=== PATIENT | male | born 1965 | race Caucasian/White ===

== ENCOUNTER 2019-09-24 17:37 | Inpatient (IN) | payer BC, MEDICAID ==
[2019-09-24] MEDS ORDERED: Iopamidol 612 MG/ML 100 ML Bottle IVPUSH ONE (18:02)
--- NOTE | 2019-09-24 18:14 | EDM.PDOC ---
ED HPI GENERAL MEDICAL PROBLEM - General Source of Information: Reports: Patient History Limitations: Reports: No Limitations - History of Present Illness Onset: Today Duration: Hour(s):, Constant Location: Reports: Head, Chest, Upper Extremity, Left, Upper Extremity, Right, Lower Extremity, Right Quality: Reports: Ache, Dull Severity: Moderate Improves with: Reports: None Worsens with: Reports: None Context: Reports: Trauma Associated Symptoms: Reports: No Other Symptoms Left Chest Pain Score (Numeric/FACES): 10 <Cornelio Brasher - Last Filed: 09/24/19 18:46> generalized Pain Score (Numeric/FACES): 8 <Nat Garcia - Last Filed: 09/25/19 04:00> - General Chief Complaint: Trauma Stated Complaint: FELL OFF LADDER Time Seen by Provider: 09/24/19 18:00 - History of Present Illness INITIAL COMMENTS - FREE TEXT/NARRATIVE: This 53 yo male patient reports to the ED after falling about 10 feet from a ladder. The patient reports that one of his coworkers intentionally kicked the ladder out from under him as he was working. The patient reports he did not get knocked out, but had difficulties thinking after the incident. The patient reports pain in is left chest, bilateral shoulders (left greater than right) and right knee pain. The patient also has a laceration beneath his lower lip due to the fall. (Cornelio Barsher) Patient states fell forward onto kness and left side with fall. Pain to left arm tingling in 3rd and 4th fingers. Now pain to left wrist. (Nat Garcia) - Related Data Allergies Allergy/AdvReac Type Severity Reaction Status Date / Time No Known Allergies Allergy Verified 09/24/19 22:34 Home Meds: Home Meds . [No Known Home Meds] 08/12/14 [History] Past Medical History Other HEENT History: Some tone deafness Other Respiratory History: Denies any symptoms, reports 35 yr history of smoking current > 1 pack/day cigarettes Other Gastrointestinal History: Current Right Upper Quadrant pain, certain food intolerences, HIDA scan showing Pablito Dyskinesia Other Musculoskeletal History: Low back pain, Neck pain from old injury Other Neuro History: "Headaches believe related to Neck problems" (old injury) Other Psychiatric History: Recovering alcohol and drug abuse since , Tobacco dependence - Past Surgical History GI Surgical History: Reports: Cholecystectomy <Cornelio Brasher M - Last Filed: 09/24/19 18:46> Social & Family History - Tobacco Use Smoking Status *Q: Current Some Day Smoker Years of Tobacco use: 43 Packs/Tins Daily: 1 - Caffeine Use Caffeine Use: Reports: Coffee, Soda - Recreational Drug Use Recreational Drug Use: Yes Drug Use in Last 12 Months: No <Cornelio Brasher M - Last Filed: 09/24/19 18:46> Review of Systems - Review of Systems Review Of Systems: Comprehensive ROS is negative, except as noted in HPI. <AnshuCornelio M - Last Filed: 09/24/19 18:46> ED EXAM, GENERAL - Physical Exam Exam: See Below Exam Limited By: No Limitations General Appearance: Alert, WD/WN, Moderate Distress Eye Exam: Bilateral Eye: EOMI, Normal Inspection, PERRL Ears: Normal External Exam, Normal Canal, Hearing Grossly Normal, Normal TMs Nose: Normal Inspection, Normal Mucosa, No Blood Throat/Mouth: Normal Inspection, Normal Lips, Normal Teeth, Normal Gums, Normal Oropharynx, Normal Voice, No Airway Compromise Head: Facial Tenderness (lower lip) Neck: Normal Inspection, Supple, Non-Tender, Full Range of Motion Respiratory/Chest: No Respiratory Distress, Lungs Clear, Normal Breath Sounds, No Accessory Muscle Use, Chest Non-Tender Cardiovascular: Normal Peripheral Pulses, Regular Rate, Rhythm, No Edema, No Gallop, No JVD, No Murmur, No Rub GI/Abdominal: Normal Bowel Sounds, Soft, Non-Tender, No Organomegaly, No Distention, No Abnormal Bruit, No Mass, Pelvis Stable (Male) Exam: Deferred Rectal (Males) Exam: Deferred Back Exam: Normal Inspection, Full Range of Motion, NT Extremities: Arm Pain (bilateral shoulder pain), Leg Pain (right knee pain with mild swelling) Neurological: Alert, Oriented, CN II-XII Intact, Normal Cognition, Normal Gait, Normal Reflexes, No Motor/Sensory Deficits Psychiatric: Normal Affect, Normal Mood Skin Exam: Warm, Dry, Normal Color, No Rash, Wound/Incision (lower lip) Lymphatic: No Adenopathy <BrasherCornelio Santos - Last Filed: 09/24/19 18:46> - Physical Exam Extremities: Joint Swelling (right knee), Other (left wrist pain with movement, no deformity) <Nat Garcia - Last Filed: 09/25/19 04:00> Course <Nat Garcia - Last Filed: 09/25/19 04:00> - Vital Signs Last Recorded V/S: Last Vital Signs Temp 97.6 F 09/24/19 22:50 Pulse 94 09/24/19 17:48 Resp 16 09/24/19 22:50 BP 142/92 H 09/24/19 22:50 Pulse Ox 100 09/24/19 22:50 - Orders/Labs/Meds Orders: Medication Orders Acetaminophen (Tylenol) 650 mg PO Q4H PRN PRN Reason: Pain (Mild 1-3)/fever Hydrocodone Bitart/Acetaminophen ([place] 325-10 Mg) 1 tab PO Q4H PRN PRN Reason: Pain (moderate 4-6) Docusate Sodium (Colace) 100 mg PO BID PRN PRN Reason: Constipation Heparin Sodium (Porcine) (Heparin Sodium) 5,000 units SUBCUT Q8HR [facility] Ibuprofen (Motrin) 400 mg PO TID [facility] Last Admin: 09/24/19 23:12 Dose: 400 mg Documented by: CALEB Miscellaneous Information (Remove Patch) 1 ea TRDERM Q24H [facility] Morphine Sulfate (Morphine) 1 mg IVPUSH Q2H PRN PRN Reason: Pain (severe 7-10) Nicotine (Habitrol) 14 mg TRDERM DAILY [facility] Last Admin: 09/24/19 23:11 Dose: 14 mg Documented by: CALEB Ondansetron HCl (Zofran Odt) 4 mg PO Q4H PRN PRN Reason: nausea, able to take PO Ondansetron HCl (Zofran) 4 mg IVPUSH Q6H PRN PRN Reason: Nausea/Vomiting Sodium Chloride (Saline Flush) 10 ml FLUSH ASDIRECTED PRN PRN Reason: Keep Vein Open Zolpidem Tartrate (Ambien) 5 mg PO BEDTIME PRN PRN Reason: Sleep Last Admin: 09/24/19 23:12 Dose: 5 mg Documented by: CALEB Labs: Laboratory Tests 09/24/19 Range/Units 17:52 Urine Color Dark yellow (YELLOW) Urine Appearance Slightly cloudy (CLEAR) Urine pH 5.5 (5.0-9.0) Ur Specific [place] 1.025 (1.005-1.030) Urine Protein Negative (NEGATIVE) Urine Glucose (UA) Negative (NEGATIVE) Urine Ketones Trace H (NEGATIVE) Urine Occult Blood Negative (NEGATIVE) Urine Nitrite Negative (NEGATIVE) Urine Bilirubin Negative (NEGATIVE) Urine Urobilinogen 0.2 (0.2-1.0) mg/dL Ur Leukocyte Esterase Negative (NEGATIVE) Meds: Medications Generic Name Dose Route Start Last Admin Trade Name Fresuzie PRN Reason Stop Dose Admin Acetaminophen 650 mg 09/24/19 22:50 Tylenol PO Q4H PRN Pain (Mild 1-3)/fever Hydrocodone Bitart/Acetaminophen 1 tab 09/24/19 22:50 [place] 325-10 Mg PO Q4H PRN Pain (moderate 4-6) Docusate Sodium 100 mg 09/24/19 22:50 Colace PO BID PRN Constipation Heparin Sodium (Porcine) 5,000 units 09/25/19 06:00 Heparin Sodium SUBCUT Q8HR [facility] Ibuprofen 400 mg 09/24/19 23:00 09/24/19 23:12 Motrin PO 400 mg TID [facility] Administration Miscellaneous Information 1 ea 09/25/19 23:00 Remove Patch TRDERM Q24H [facility] Morphine Sulfate 1 mg 09/24/19 22:50 Morphine IVPUSH Q2H PRN Pain (severe 7-10) Nicotine 14 mg 09/24/19 23:00 09/24/19 23:11 Habitrol TRDERM 14 mg DAILY [facility] Administration Ondansetron HCl 4 mg 09/24/19 22:50 Zofran Odt PO Q4H PRN nausea, able to take PO Ondansetron HCl 4 mg 09/24/19 22:50 Zofran IVPUSH Q6H PRN Nausea/Vomiting Sodium Chloride 10 ml 09/24/19 22:50 Saline Flush FLUSH ASDIRECTED PRN Keep Vein Open Zolpidem Tartrate 5 mg 09/24/19 22:50 09/24/19 23:12 Ambien PO 5 mg BEDTIME PRN Administration Sleep Discontinued Medications Generic Name Dose Route Start Last Admin Trade Name Maggie PRN Reason Stop Dose Admin Fentanyl 50 mcg 09/24/19 21:28 09/24/19 21:42 Sublimaze IVPUSH 09/24/19 21:29 50 mcg ONETIME ONE Administration Iopamidol 100 ml 09/24/19 18:02 09/24/19 19:09 Isovue-300 (61%) IVPUSH 09/24/19 18:03 100 ml ONETIME ONE Administration Lidocaine/Epinephrine 20 ml 09/24/19 19:35 09/24/19 19:52 Xylocaine 1% With Epinephrine 1:100,000 INJECT 09/24/19 19:36 20 ml ONETIME ONE Administration Orphenadrine Citrate 60 mg 09/24/19 21:28 09/24/19 21:44 Norflex IM 09/24/19 21:29 60 mg ONETIME ONE Administration - Re-Assessments/Exams Free Text/Narrative Re-Assessment/Exam: TC Dr Miguel Ángel [facility] regarding glenoid fracture, Recommend sling and follow up in clinic next week on Sunday or Sunday Poor tolerance to discomfort, shaking, sweating with attempt to sit up and dress. Dr Cornejo accepting patient for observation/ pain control. Results of studies reviewed with patient. (Nat Garcia) Departure <Cornelio Brasher - Last Filed: 09/24/19 18:46> - Departure Time of Disposition: 22:05 Condition: Good - Discharge Information *PRESCRIPTION DRUG MONITORING PROGRAM REVIEWED*: No *COPY OF PRESCRIPTION DRUG MONITORING REPORT IN PATIENT SWEETIE: No <Nat Garcia - Last Filed: 09/25/19 04:00> - Departure Disposition: Refer to Observation Clinical Impression: Effusion, right knee, Left wrist pain Fall from ladder Qualifiers: Encounter type: initial encounter Qualified Code(s): W11.XXXA - Fall on and from ladder, initial encounter Glenoid fracture of shoulder Qualifiers: Encounter type: initial encounter Fracture type: closed Laterality: left Qualified Code(s): S42.142A - Displaced fracture of glenoid cavity of scapula, left shoulder, initial encounter for closed fracture Laceration of lip Qualifiers: Encounter type: initial encounter Qualified Code(s): S01.511A - Laceration without foreign body of lip, initial encounter Sepsis Event Note (ED) - Evaluation Sepsis Screening Result: No Definite Risk <Cornelio Brasher - Last Filed: 09/24/19 18:46> - Focused Exam Vital Signs: Vital Signs Temp Pulse Resp BP Pulse Ox 09/24/19 17:48 97.4 F 94 18 130/80 97
--- NOTE | 2019-09-24 19:15 | CR ---
PROCEDURE INFORMATION: Exam: XR Right Knee Exam date and time: 09/24/2019 6:43 PM Age: 53 years old Clinical indication: Injury or trauma; Fall; Work related; Initial encounter; Blunt trauma; Knee; Right; Injury date: 09/24/2019; Additional info: Fell from ladder TECHNIQUE: Imaging protocol: XR Right knee. Views: 1 or 2 views. COMPARISON: No relevant prior studies available. FINDINGS: Bones/joints: Effacement of suprapatellar fat suggesting joint effusion. No acute fracture or dislocation. Soft tissues: Normal. IMPRESSION: No acute fracture or dislocation.
--- NOTE | 2019-09-24 19:16 | CT ---
PROCEDURE INFORMATION: Exam: CT Head Without Contrast Exam date and time: 09/24/2019 6:18 PM Age: 53 years old Clinical indication: Pain; Other: Fall; Additional info: Fell 10 feet from ladder TECHNIQUE: Imaging protocol: Computed tomography of the head without contrast. Radiation optimization: All CT scans at this facility use at least one of these dose optimization techniques: automated exposure control; mA and/or kV adjustment per patient size (includes targeted exams where dose is matched to clinical indication); or iterative reconstruction. COMPARISON: No relevant prior studies available. FINDINGS: Brain: No mass effect or midline shift. No abnormal densities are seen intracranially; no sign of acute intracranial hemorrhage or cerebral edema. Ventricles: Ventricles and cortical sulci are normal in caliber. Bones/joints: Skull base and overlying calvarium are intact. No lytic or osteosclerotic lesions. Sinuses: Visualized sinuses are unremarkable. No fluid levels. Mastoid air cells: Visualized mastoid air cells are well aerated. Orbits: Gaze is divergent. Soft tissues: Unremarkable. IMPRESSION: No sign of acute intracranial injury or skull fracture.
--- NOTE | 2019-09-24 19:25 | CT ---
PROCEDURE INFORMATION: Exam: CT Chest With Contrast Exam date and time: 09/24/2019 6:18 PM Age: 53 years old Clinical indication: Injury or trauma; Fall; Work related; Initial encounter; Generalized; Blunt trauma (contusions or hematomas); Injury date: 09/24/2019; Prior surgery; Surgery date: 6+ months; Surgery type: Cholecystectomy; Additional info: Fell 10 feet from ladder TECHNIQUE: Imaging protocol: Computed tomography of the chest with intravenous contrast. Radiation optimization: All CT scans at this facility use at least one of these dose optimization techniques: automated exposure control; mA and/or kV adjustment per patient size (includes targeted exams where dose is matched to clinical indication); or iterative reconstruction. Contrast material: ISOVUE; Contrast volume: 100 ml; Contrast route: INTRAVENOUS (IV); COMPARISON: No relevant prior studies available. FINDINGS: Lungs: No trauma-related groundglass densities, areas of lung consolidation, or significant cystic/cavitary lesions. Airway is patent. Pleural space: No pneumothorax, pleural effusion, or hemothorax. Heart: No pericardial effusion or hemopericardium. Mediastinal space: No pneumomediastinum, hemomediastinum, or stranding of retrosternal fat. Aorta: No aortic aneurysm. Great vessels off aortic arch: The thoracic aorta and other great vessels are normal in caliber with no intimal flap to indicate dissection. Lymph nodes: No enlarged axillary, mediastinal, or hilar lymph nodes. Bones/joints: Fracture of anterior inferior left glenoid displaced by 8 mm. No shoulder dislocation. Healed posterior right 8th rib fracture.There is age-appropriate spondylosis of the spine. Soft tissues: No sign of subcutaneous contusion or hematoma. No foreign body. IMPRESSION: Fracture of anterior inferior left glenoid displaced by 8 mm. PROCEDURE INFORMATION: Exam: CT Abdomen And Pelvis With Contrast Exam date and time: 09/24/2019 6:18 PM Age: 53 years old Clinical indication: Injury or trauma; Fall; Work related; Initial encounter; Generalized; Blunt trauma (contusions or hematomas); Injury date: 09/24/2019; Prior surgery; Surgery date: 6+ months; Surgery type: Cholecystectomy; Additional info: Fell 10 feet from ladder TECHNIQUE: Imaging protocol: Computed tomography of the abdomen and pelvis with intravenous contrast. Radiation optimization: All CT scans at this facility use at least one of these dose optimization techniques: automated exposure control; mA and/or kV adjustment per patient size (includes targeted exams where dose is matched to clinical indication); or iterative reconstruction. Contrast material: ISOVUE; Contrast volume: 100 ml; Contrast route: INTRAVENOUS (IV); COMPARISON: No relevant prior studies available. FINDINGS: Liver: Liver is normal in architecture, no subcapsular hematoma, linear parenchymal lucency, or significant abnormal densities. Gallbladder and bile ducts: The gallbladder is surgically absent. Pancreas: Pancreas is normal in architecture, contour and density. No ductal dilatation. No local stranding of its fat. No pancreatic cleavage. Spleen: No splenic or perisplenic hematomas. No linear parenchymal lucencies. Adrenals: There are no suspicious adrenal masses. Kidneys and ureters: Kidneys show symmetric excretion without focal perfusion defect. No perinephric or subcapsular hematomas. No fracture. No hydronephrosis. Stomach and bowel: No significant abnormalities of the stomach. There are no dilated or thickened small bowel loops. Gas and stool are seen in the colon to the rectum. No mass. Appendix: The appendix is seen. It is normal. Intraperitoneal space: No pneumoperitoneum, ascites, mass or stranding of fat. Vasculature: No pseudoaneurysm, sign of active hemorrhage, intimal flap, subintimal hematoma, extraperitoneal hematoma, or vessel thrombosis. Multiple phleboliths are present bilaterally low within the pelvis. Lymph nodes: No enlarged lymph nodes. Bladder: There is no bladder wall thickening, mass, or calculus. Reproductive: Prostate gland is normal in size. The seminal vesicles are unremarkable. Bones/joints: Lumbar spine, sacrum, pelvis and proximal femurs are intact. Soft tissues: No sign of subcutaneous contusion or hematoma. No foreign body. IMPRESSION: No sign of acute traumatic sequelae to the abdomen and pelvis.
[2019-09-24] MEDS ORDERED: Lidocaine 1% with EPINEPHrine 1:100,000 20 ML MDV INJECT ONE (19:35)
[2019-09-24] MEDS ORDERED: fentaNYL 100 MCG/2 ML SDV IVPUSH ONE (21:28)
[2019-09-24] MEDS ORDERED: Orphenadrine 60 MG/2 ML Inj IM ONE (21:28)
--- NOTE | 2019-09-24 21:31 | CT ---
PROCEDURE INFORMATION: Exam: CT Cervical Spine Without Contrast Exam date and time: 09/24/2019 8:42 PM Age: 53 years old Clinical indication: Injury or trauma; Fall; Work related; Initial encounter; Blunt trauma; Injury date: 09/24/2019; Additional info: Fall 10 feet tingling left hand 3 rd 4th fingers TECHNIQUE: Imaging protocol: Computed tomography images of the cervical spine without contrast. Radiation optimization: All CT scans at this facility use at least one of these dose optimization techniques: automated exposure control; mA and/or kV adjustment per patient size (includes targeted exams where dose is matched to clinical indication); or iterative reconstruction. COMPARISON: No relevant prior studies available. FINDINGS: Vertebrae: No acute fracture. There are no perched or locked facets. The craniocervical relationship is normal. No lytic or osteosclerotic lesions. Discs/Spinal canal/Neural foramina: Age-appropriate spondylosis contributing to multilevel bilateral foraminal stenosis. Soft tissues: Unremarkable. Lungs: Lung apices are normal. IMPRESSION: No sign of acute cervical spine injury.
--- NOTE | 2019-09-24 21:33 | CR ---
PROCEDURE INFORMATION: Exam: XR Left Wrist Exam date and time: 09/24/2019 8:57 PM Age: 53 years old Clinical indication: Injury or trauma; Fall; Work related; Initial encounter; Blunt trauma (contusions or hematomas; Wrist; Left; Injury date: 09/24/2019 TECHNIQUE: Imaging protocol: XR Left wrist. Views: 3 or more views. COMPARISON: No relevant prior studies available. FINDINGS: Bones/joints: Normal. Soft tissues: Suspected 2 mm metallic foreign body in the soft tissues of the thumb. IMPRESSION: 1. No acute fracture or dislocation. 2. Suspected 2 mm metallic foreign body in the soft tissues of the thumb.
--- NOTE | 2019-09-24 21:41 | CT ---
PROCEDURE INFORMATION: Exam: CT Left Upper Extremity Without Contrast, Shoulder Exam date and time: 09/24/2019 8:42 PM Age: 53 years old Clinical indication: Injury or trauma; Fall; Work related; Initial encounter; Blunt trauma (contusions or hematomas; Shoulder; Left; Injury date: 09/24/2019; Additional info: Fall from ladder 10 feet TECHNIQUE: Imaging protocol: CT of the Left upper extremity without contrast was performed. Exam focused on the shoulder. Radiation optimization: All CT scans at this facility use at least one of these dose optimization techniques: automated exposure control; mA and/or kV adjustment per patient size (includes targeted exams where dose is matched to clinical indication); or iterative reconstruction. COMPARISON: No relevant prior studies available. FINDINGS: Bones/joints: 1.4 cm displaced fracture of the anterior inferior glenoid. No dislocation. Suspect [place] Sachs impaction fracture. Soft tissues: Normal. IMPRESSION: 1. 1.4 cm displaced fracture of the anterior inferior glenoid. 2. Suspect [place] Sachs impaction fracture.
[2019-09-24] MEDS ORDERED: Ondansetron 4 MG Tab.DIS PO PRN (22:50)
[2019-09-24] MEDS ORDERED: Ondansetron 4 MG/2 ML SDV IVPUSH PRN (22:50)
[2019-09-24] MEDS ORDERED: Docusate Sodium 100 MG Cap PO PRN (22:50)
[2019-09-24] MEDS ORDERED: Morphine 2 MG/ML SYRINGE IVPUSH PRN (22:50)
[2019-09-24] MEDS ORDERED: Acetaminophen 325 MG Tab PO PRN (22:50)
[2019-09-24] MEDS ORDERED: Zolpidem 5 MG Tab PO PRN (22:50)
--- NOTE | 2019-09-24 23:03 | PCM.HP ---
H&P History of Present Illness - General Date of Service: 09/24/19 Admit Problem/Dx: Admission Diagnosis/Problem Admission Diagnosis/Problem Fall from ladder Source of Information: Patient History Limitations: Reports: No Limitations - History of Present Illness Initial Comments - Free Text/Narative: 53-year-old gentleman with no chronic medical history. Taking no medications. Smoking 1.5 pack a day, drinking 5-7 beers a day, last consumption was about 24 hours ago. The patient was working on the ladder about 10 feet high. He fell down. No apparent loss of consciousness. Did hit the face, shoulders, knee. Came to the emergency room He has been complaining of left shoulder, right knee pain. Laceration noted on the lower lip that was sutured in the ER. The patient had CT of the chest abdomen pelvis, x-ray of the left hand and right knee. Injury noted to the left glenoid bone with fracture. Pain medication was given in the emergency room that but the patient was in too much pain for discharge. Plan for admission for pain control. Complaining of moderate to severe pain in the right knee and left shoulder. This is since the fall. Worse with touch and movements. Left Chest Pain Score (Numeric/FACES): 10 - Related Data Allergies/Adverse Reactions: Allergies Allergy/AdvReac Type Severity Reaction Status Date / Time No Known Allergies Allergy Verified 09/24/19 22:34 Home Medications: Home Meds . [No Known Home Meds] 08/12/14 [History] Past Medical History Other HEENT History: Some tone deafness Other Respiratory History: Denies any symptoms, reports 35 yr history of smoking current > 1 pack/day cigarettes Other Gastrointestinal History: Current Right Upper Quadrant pain, certain food intolerences, HIDA scan showing Pablito Dyskinesia Other Musculoskeletal History: Low back pain, Neck pain from old injury Other Neuro History: "Headaches believe related to Neck problems" (old injury) Other Psychiatric History: Recovering alcohol and drug abuse since , Tobacco dependence - Infectious Disease History Infectious Disease History: Reports: Chicken Pox, Mumps - Past Surgical History GI Surgical History: Reports: Cholecystectomy Social & Family History - Tobacco Use Smoking Status *Q: Current Every Day Smoker Years of Tobacco use: 45 Packs/Tins Daily: 1.5 Used Tobacco, but Quit: No Second Hand Smoke Exposure: Yes - Caffeine Use Caffeine Use: Reports: None - Alcohol Use Days Per Week of Alcohol Use: 3 Number of Drinks Per Day: 12 Total Drinks Per Week: 36 Date of Last Drink: 09/24/19 Time of Last Drink: 00:00 - Recreational Drug Use Recreational Drug Use: No Drug Use in Last 12 Months: No H&P Review of Systems - Review of Systems: Review Of Systems: See Below General: Denies: Fever, Chills Pulmonary: Denies: Shortness of Breath Cardiovascular: Denies: Chest Pain, Edema Gastrointestinal: Denies: Abdominal Pain Exam - Exam Exam: See Below - Vital Signs Vital Signs: Last Vital Signs Temp 97.4 F 09/24/19 17:48 Pulse 94 09/24/19 17:48 Resp 18 09/24/19 17:48 BP 130/80 09/24/19 17:48 Pulse Ox 97 09/24/19 17:48 Weight: 236 lb 12.8 oz - Exam General: Alert, Oriented HEENT: Other (Sutured laceration of the lower lip) Neck: Supple Lungs: Clear to Auscultation, Normal Respiratory Effort Cardiovascular: Regular Rate, Regular Rhythm GI/Abdominal Exam: Normal Bowel Sounds, Soft Extremities: Other (Left upper extremity in a sling, right knee with Rikki bandage). No: Pedal Edema - Patient Data Lab Results Last 24 hrs: Laboratory Results - last 24 hr 09/24/19 Range/Units 17:52 Urine Color Dark yellow (YELLOW) Urine Appearance Slightly cloudy (CLEAR) Urine pH 5.5 (5.0-9.0) Ur Specific [place] 1.025 (1.005-1.030) Urine Protein Negative (NEGATIVE) Urine Glucose (UA) Negative (NEGATIVE) Urine Ketones Trace H (NEGATIVE) Urine Occult Blood Negative (NEGATIVE) Urine Nitrite Negative (NEGATIVE) Urine Bilirubin Negative (NEGATIVE) Urine Urobilinogen 0.2 (0.2-1.0) mg/dL Ur Leukocyte Esterase Negative (NEGATIVE) Imaging Impressions Last 24 hrs: X-ray of the right knee, CT of the left shoulder, CT chest abdomen pelvis, x-ray of the left hand was reviewed. Left thumb metallic body noted Left anterior and inferior glenoid fracture noted - Problem List (1) Effusion, right knee SNOMED Code(s): 649797303925379 ICD Code: M25.461 - EFFUSION, RIGHT KNEE Status: Acute Current Visit: No (2) Fall from ladder SNOMED Code(s): 02181807 ICD Code: W11.XXXA - FALL ON AND FROM LADDER, INITIAL ENCOUNTER Status: Acute Current Visit: No Qualifiers: Encounter type: initial encounter Qualified Code(s): W11.XXXA - Fall on and from ladder, initial encounter (3) Glenoid fracture of shoulder SNOMED Code(s): 73781475 ICD Code: S42.143A - DISP FX OF GLENOID CAVITY OF SCAPULA, UNSP SHOULDER, INIT; S42.153A - DISP FX OF NECK OF SCAPULA, UNSP SHOULDER, INIT FOR CLOS FX Status: Acute Current Visit: No Qualifiers: Encounter type: initial encounter Fracture type: closed Laterality: left Qualified Code(s): S42.142A - Displaced fracture of glenoid cavity of scapula, left shoulder, initial encounter for closed fracture; S42.152A - Displaced fracture of neck of scapula, left shoulder, initial encounter for closed fracture (4) Laceration of lip SNOMED Code(s): 442161318 ICD Code: S01.511A - LACERATION WITHOUT FOREIGN BODY OF LIP, INITIAL ENCOUNTER Status: Acute Current Visit: No Qualifiers: Encounter type: initial encounter Qualified Code(s): S01.511A - Laceration without foreign body of lip, initial encounter (5) Left wrist pain SNOMED Code(s): 21136907 ICD Code: M25.532 - PAIN IN LEFT WRIST Status: Acute Current Visit: No Problem List Initiated/Reviewed/Updated: Yes Orders Last 24hrs: Active Orders 24 hr Category Date Time Status Admission Diagnosis [ADT] Stat ADT 09/24/19 22:03 Ordered Admission Status [Patient Status] [ADT] Routine ADT 09/24/19 22:03 Active Antiembolic Devices [RC] PER UNIT ROUTINE Care 09/24/19 22:52 Ordered Cardiac Monitoring [RC] . DIRECTED Care 09/24/19 22:03 Active Oxygen Therapy [RC] PRN Care 09/24/19 22:50 Ordered Peripheral IV Care [RC] . DIRECTED Care 09/24/19 22:52 Ordered Up With Assistance [RC] ASDIRECTED Care 09/24/19 22:50 Ordered VTE/DVT Education [RC] PER UNIT ROUTINE Care 09/24/19 22:50 Ordered Vital Signs [RC] Q4H Care 09/24/19 22:50 Ordered Regular Diet [DIET] Diet 09/24/19 Breakfast Ordered Acetaminophen [Tylenol] Med 09/24/19 22:50 Ordered 650 mg PO Q4H PRN Acetaminophen/HYDROcodone [[place] 325-10 MG] Med 09/24/19 22:50 Ordered 1 tab PO Q4H PRN Docusate Sodium [Colace] Med 09/24/19 22:50 Ordered 100 mg PO BID PRN Heparin Sodium Med 09/25/19 06:00 Ordered 5,000 units SUBCUT Q8HR Ibuprofen [Motrin] Med 09/24/19 23:00 Ordered 400 mg PO TID Morphine Med 09/24/19 22:50 Ordered 1 mg IVPUSH Q2H PRN Nicotine [Habitrol] Med 09/24/19 23:00 Ordered 14 mg TRDERM DAILY Ondansetron [Zofran ODT] Med 09/24/19 22:50 Ordered 4 mg PO Q4H PRN Ondansetron [Zofran] Med 09/24/19 22:50 Ordered 4 mg IVPUSH Q6H PRN Sodium Chloride 0.9% [Saline Flush] Med 09/24/19 22:50 Ordered 10 ml FLUSH ASDIRECTED PRN Zolpidem [Ambien] Med 09/24/19 22:50 Ordered 5 mg PO BEDTIME PRN Peripheral IV Insertion Adult [OM.PC] Routine Oth 09/24/19 22:50 Ordered Saline Lock Insert [OM.PC] Routine Oth 09/24/19 22:50 Ordered Sequential Compression Device [OM.PC] Per Unit Routine Oth 09/24/19 22:51 Ordered Resuscitation Status Routine Resus Stat 09/24/19 22:50 Ordered Medication Orders Acetaminophen (Tylenol) 650 mg PO Q4H PRN PRN Reason: Pain (Mild 1-3)/fever Hydrocodone Bitart/Acetaminophen ([place] 325-10 Mg) 1 tab PO Q4H PRN PRN Reason: Pain (moderate 4-6) Docusate Sodium (Colace) 100 mg PO BID PRN PRN Reason: Constipation Heparin Sodium (Porcine) (Heparin Sodium) 5,000 units SUBCUT Q8HR [facility] Ibuprofen (Motrin) 400 mg PO TID [facility] Morphine Sulfate (Morphine) 1 mg IVPUSH Q2H PRN PRN Reason: Pain (severe 7-10) Nicotine (Habitrol) 14 mg TRDERM DAILY [facility] Ondansetron HCl (Zofran Odt) 4 mg PO Q4H PRN PRN Reason: nausea, able to take PO Ondansetron HCl (Zofran) 4 mg IVPUSH Q6H PRN PRN Reason: Nausea/Vomiting Sodium Chloride (Saline Flush) 10 ml FLUSH ASDIRECTED PRN PRN Reason: Keep Vein Open Zolpidem Tartrate (Ambien) 5 mg PO BEDTIME PRN PRN Reason: Sleep Assessment/Plan Comment:: 53-year-old gentleman with no chronic medical history. Taking no medications. Smoking 1.5 pack a day, drinking 5-7 beers a day, last consumption was about 24 hours ago. The patient was working on the ladder about 10 feet high. He fell down. No apparent loss of consciousness. Did hit the face, shoulders, knee. Came to the emergency room He has been complaining of left shoulder, right knee pain. Laceration noted on the lower lip that was sutured in the ER. The patient had CT of the chest abdomen pelvis, x-ray of the left hand and right knee. Injury noted to the left glenoid bone with fracture. Pain medication was given in the emergency room that but the patient was in too much pain for discharge. Plan for admission for pain control. X-ray of the right knee, CT of the left shoulder, CT chest abdomen pelvis, x-ray of the left hand was reviewed. #1 Left thumb 2mm metallic body noted Left anterior and inferior glenoid fracture noted The patient's left shoulder injury was discussed between the emergency room provider and orthopedic surgery occupational therapy assistant in [place]. Plan for pain control Follow-up in the ortho clinic for further evaluation and treatment Will also need suture removal from the lower lip in 2 weeks #2. For pain control we'll start scheduled Motrin Use Tylenol for mild, hydrocodone for moderate, IV morphine for severe pain Use left upper extremity sling #3. Will use nicotine patch ordered a history of smoking, monitor for potential alcohol withdrawal #4. DVT prophylaxis with subcutaneous heparin
[2019-09-24] MEDS: Nicotine 14 MG/24 Hr Patch TRDERM SCH (23:11)
[2019-09-24] MEDS: Ibuprofen 400 MG Tab PO SCH (23:12)
[2019-09-25] MEDS: Heparin Sodium 5,000 Units/ML Vial SUBCUT SCH ×3 (05:51→21:52)
[2019-09-25] MEDS: Nicotine 14 MG/24 Hr Patch TRDERM SCH (08:30)
[2019-09-25] MEDS: Ibuprofen 400 MG Tab PO SCH ×3 (08:31→21:49)
[2019-09-25] MEDS: Sodium Chloride 0.9% 10 ML Syringe FLUSH PRN (08:38)
--- NOTE | 2019-09-25 10:23 | PCM.DCSUM1 ---
Discharge Summary - Hospital Course Free Text/Narrative:: 53-year-old gentleman with no chronic medical history. Taking no medications. Smoking 1.5 pack a day, drinking 5-7 beers a day. The patient was working on the ladder about 10 feet high. He fell down. No apparent loss of consciousness. Did hit the face, shoulders, knee. Came to the emergency room He has been complaining of left shoulder, right knee pain. Laceration noted on the lower lip that was sutured in the ER. The patient had CT of the chest abdomen pelvis, x-ray of the left hand and right knee. Injury noted to the left glenoid bone with fracture. Pain medication was given in the emergency room that but the patient was in too much pain for discharge. X-ray of the right knee, CT of the left shoulder, CT chest abdomen pelvis, x-ray of the left hand was reviewed. #1 Left thumb 2mm metallic body noted - no apparent new injury Left anterior and inferior glenoid fracture noted The patient's left shoulder injury was discussed between the emergency room provider and orthopedic surgery cotton classer aide in [place]. Plan for pain control Follow-up in the ortho clinic for further evaluation and treatment Will also need suture removal from the lower lip in 2 weeks #2. For pain control use Motrin, Tylenol Use left upper extremity sling #3. No withdrawal symptoms Diagnosis: Stroke: No - Discharge Data Discharge Date: 09/25/19 Discharge Disposition: Home, Self-Care 01 Condition: Stable - Referral to Home Health Primary Care Physician: PCP None - Discharge Diagnosis/Problem(s) (1) Effusion, right knee SNOMED Code(s): 693593907632975 ICD Code: M25.461 - EFFUSION, RIGHT KNEE Status: Acute Current Visit: No (2) Fall from ladder SNOMED Code(s): 37113343 ICD Code: W11.XXXA - FALL ON AND FROM LADDER, INITIAL ENCOUNTER Status: Acute Current Visit: No Qualifiers: Encounter type: initial encounter Qualified Code(s): W11.XXXA - Fall on and from ladder, initial encounter (3) Glenoid fracture of shoulder SNOMED Code(s): 26871287 ICD Code: S42.143A - DISP FX OF GLENOID CAVITY OF SCAPULA, UNSP SHOULDER, INIT; S42.153A - DISP FX OF NECK OF SCAPULA, UNSP SHOULDER, INIT FOR CLOS FX Status: Acute Current Visit: No Qualifiers: Encounter type: initial encounter Fracture type: closed Laterality: left Qualified Code(s): S42.142A - Displaced fracture of glenoid cavity of scapula, left shoulder, initial encounter for closed fracture; S42.152A - Displaced fracture of neck of scapula, left shoulder, initial encounter for closed fracture (4) Laceration of lip SNOMED Code(s): 738086449 ICD Code: S01.511A - LACERATION WITHOUT FOREIGN BODY OF LIP, INITIAL ENCOUNTER Status: Acute Current Visit: No Qualifiers: Encounter type: initial encounter Qualified Code(s): S01.511A - Laceration without foreign body of lip, initial encounter (5) Left wrist pain SNOMED Code(s): 45084658 ICD Code: M25.532 - PAIN IN LEFT WRIST Status: Acute Current Visit: No - Patient Instructions Diet: Heart Healthy Diet Activity: As Tolerated - Discharge Plan *PRESCRIPTION DRUG MONITORING PROGRAM REVIEWED*: No *COPY OF PRESCRIPTION DRUG MONITORING REPORT IN PATIENT SWEETIE: No Prescriptions/Med Rec: Ibuprofen [Motrin] 600 mg PO Q6H PRN #30 tab PRN Reason: Pain Home Medications: Home Meds Acetaminophen [Tylenol] 650 mg PO Q4H PRN tablet 09/25/19 [Rx] Ibuprofen [Motrin] 600 mg PO Q6H PRN #30 tab 09/25/19 [Rx] Oxygen Therapy Mode: Room Air Patient Handouts: Shoulder Pain, Knee Effusion, [id number], Sutured Wound C are, Sutures, Jeri, or Adhesive Wound Closure Referrals: PCP,None [Primary Care Provider] - (orthopedic surgery) - Discharge Summary/Plan Comment DC Time >30 min.: No - General Info Date of Service: 09/25/19 Subjective Update: diffuse muscle ache in whole body pain in left shoulder and r. knee no bleeding from lip sutures Functional Status: Reports: Tolerating Diet - Review of Systems General: Denies: Fever Pulmonary: Denies: Shortness of Breath Cardiovascular: Denies: Chest Pain Neurological: Denies: Confusion - Patient Data Vitals - Most Recent: Last Vital Signs Temp 98.5 F 09/25/19 07:43 Pulse 74 09/25/19 07:43 Resp 20 09/25/19 07:43 BP 138/84 09/25/19 07:43 Pulse Ox 97 09/25/19 07:43 Weight - Most Recent: 236 lb 12.8 oz I&O - Last 24 hours: Intake & Output 09/24/19 09/25/19 09/25/19 22:59 06:59 14:59 Output Total 525 Balance -525 Lab Results - Last 24 hrs: Laboratory Results - last 24 hr 09/24/19 Range/Units 17:52 Urine Color Dark yellow (YELLOW) Urine Appearance Slightly cloudy (CLEAR) Urine pH 5.5 (5.0-9.0) Ur Specific [place] 1.025 (1.005-1.030) Urine Protein Negative (NEGATIVE) Urine Glucose (UA) Negative (NEGATIVE) Urine Ketones Trace H (NEGATIVE) Urine Occult Blood Negative (NEGATIVE) Urine Nitrite Negative (NEGATIVE) Urine Bilirubin Negative (NEGATIVE) Urine Urobilinogen 0.2 (0.2-1.0) mg/dL Ur Leukocyte Esterase Negative (NEGATIVE) Med Orders - Current: Current Medications Acetaminophen (Tylenol) 650 mg PO Q4H PRN PRN Reason: Pain (Mild 1-3)/fever Hydrocodone Bitart/Acetaminophen ([place] 325-10 Mg) 1 tab PO Q4H PRN PRN Reason: Pain (moderate 4-6) Docusate Sodium (Colace) 100 mg PO BID PRN PRN Reason: Constipation Heparin Sodium (Porcine) (Heparin Sodium) 5,000 units SUBCUT Q8HR [facility] Last Admin: 09/25/19 05:51 Dose: Not Given Documented by: Ibuprofen (Motrin) 400 mg PO TID [facility] Last Admin: 09/25/19 08:31 Dose: 400 mg Documented by: Miscellaneous Information (Remove Patch) 1 ea TRDERM Q24H [facility] Morphine Sulfate (Morphine) 1 mg IVPUSH Q2H PRN PRN Reason: Pain (severe 7-10) Nicotine (Habitrol) 14 mg TRDERM DAILY [facility] Last Admin: 09/25/19 08:30 Dose: 14 mg Documented by: Ondansetron HCl (Zofran Odt) 4 mg PO Q4H PRN PRN Reason: nausea, able to take PO Ondansetron HCl (Zofran) 4 mg IVPUSH Q6H PRN PRN Reason: Nausea/Vomiting Sodium Chloride (Saline Flush) 10 ml FLUSH ASDIRECTED PRN PRN Reason: Keep Vein Open Last Admin: 09/25/19 08:38 Dose: 10 ml Documented by: Zolpidem Tartrate (Ambien) 5 mg PO BEDTIME PRN PRN Reason: Sleep Last Admin: 09/24/19 23:12 Dose: 5 mg Documented by: Discontinued Medications Fentanyl (Sublimaze) 50 mcg IVPUSH ONETIME ONE Stop: 09/24/19 21:29 Last Admin: 09/24/19 21:42 Dose: 50 mcg Documented by: Iopamidol (Isovue-300 (61%)) 100 ml IVPUSH ONETIME ONE Stop: 09/24/19 18:03 Last Admin: 09/24/19 19:09 Dose: 100 ml Documented by: Lidocaine/Epinephrine (Xylocaine 1% With Epinephrine 1:100,000) 20 ml INJECT ONETIME ONE Stop: 09/24/19 19:36 Last Admin: 09/24/19 19:52 Dose: 20 ml Documented by: Orphenadrine Citrate (Norflex) 60 mg IM ONETIME ONE Stop: 09/24/19 21:29 Last Admin: 09/24/19 21:44 Dose: 60 mg Documented by: - Exam General: Reports: Alert, Oriented Lungs: Reports: Clear to Auscultation, Normal Respiratory Effort Cardiovascular: Reports: Regular Rate, Regular Rhythm Extremities: No Pedal Edema Skin: Reports: Warm Neurological: Reports: No New Focal Deficit Psy/Mental Status: Reports: Alert, Normal Affect, Normal Mood
[2019-09-25] MEDS: Acetaminophen/HYDROcodone 325-10 MG Tab PO PRN ×3 (11:18→20:28)
--- NOTE | 2019-09-25 11:39 | PCM.PN ---
- General Info Date of Service: 09/25/19 Admission Dx/Problem (Free Text): Admission Diagnosis/Problem Admission Diagnosis/Problem Fall from ladder Subjective Update: diffuse muscle ache in whole body pain in left shoulder and r. knee no bleeding from lip sutures - Review of Systems General: Reports: Weakness. Denies: Fever Pulmonary: Denies: Shortness of Breath Cardiovascular: Denies: Chest Pain Gastrointestinal: Denies: Abdominal Pain Neurological: Denies: Confusion - Patient Data Vitals - Most Recent: Last Vital Signs Temp 98.5 F 09/25/19 07:43 Pulse 74 09/25/19 07:43 Resp 20 09/25/19 07:43 BP 138/84 09/25/19 07:43 Pulse Ox 97 09/25/19 07:43 Weight - Most Recent: 236 lb 12.8 oz I&O - Last 24 Hours: Intake & Output 09/24/19 09/25/19 09/25/19 22:59 06:59 14:59 Output Total 525 Balance -525 Lab Results Last 24 Hours: Laboratory Results - last 24 hr 09/24/19 Range/Units 17:52 Urine Color Dark yellow (YELLOW) Urine Appearance Slightly cloudy (CLEAR) Urine pH 5.5 (5.0-9.0) Ur Specific [place] 1.025 (1.005-1.030) Urine Protein Negative (NEGATIVE) Urine Glucose (UA) Negative (NEGATIVE) Urine Ketones Trace H (NEGATIVE) Urine Occult Blood Negative (NEGATIVE) Urine Nitrite Negative (NEGATIVE) Urine Bilirubin Negative (NEGATIVE) Urine Urobilinogen 0.2 (0.2-1.0) mg/dL Ur Leukocyte Esterase Negative (NEGATIVE) Med Orders - Current: Current Medications Acetaminophen (Tylenol) 650 mg PO Q4H PRN PRN Reason: Pain (Mild 1-3)/fever Hydrocodone Bitart/Acetaminophen ([place] 325-10 Mg) 1 tab PO Q4H PRN PRN Reason: Pain (moderate 4-6) Last Admin: 09/25/19 11:18 Dose: 1 tab Documented by: Docusate Sodium (Colace) 100 mg PO BID PRN PRN Reason: Constipation Heparin Sodium (Porcine) (Heparin Sodium) 5,000 units SUBCUT Q8HR [facility] Last Admin: 09/25/19 05:51 Dose: Not Given Documented by: Ibuprofen (Motrin) 400 mg PO TID [facility] Last Admin: 09/25/19 08:31 Dose: 400 mg Documented by: Miscellaneous Information (Remove Patch) 1 ea TRDERM Q24H [facility] Morphine Sulfate (Morphine) 1 mg IVPUSH Q2H PRN PRN Reason: Pain (severe 7-10) Nicotine (Habitrol) 14 mg TRDERM DAILY [facility] Last Admin: 09/25/19 08:30 Dose: 14 mg Documented by: Ondansetron HCl (Zofran Odt) 4 mg PO Q4H PRN PRN Reason: nausea, able to take PO Ondansetron HCl (Zofran) 4 mg IVPUSH Q6H PRN PRN Reason: Nausea/Vomiting Sodium Chloride (Saline Flush) 10 ml FLUSH ASDIRECTED PRN PRN Reason: Keep Vein Open Last Admin: 09/25/19 08:38 Dose: 10 ml Documented by: Zolpidem Tartrate (Ambien) 5 mg PO BEDTIME PRN PRN Reason: Sleep Last Admin: 09/24/19 23:12 Dose: 5 mg Documented by: Discontinued Medications Fentanyl (Sublimaze) 50 mcg IVPUSH ONETIME ONE Stop: 09/24/19 21:29 Last Admin: 09/24/19 21:42 Dose: 50 mcg Documented by: Iopamidol (Isovue-300 (61%)) 100 ml IVPUSH ONETIME ONE Stop: 09/24/19 18:03 Last Admin: 09/24/19 19:09 Dose: 100 ml Documented by: Lidocaine/Epinephrine (Xylocaine 1% With Epinephrine 1:100,000) 20 ml INJECT ONETIME ONE Stop: 09/24/19 19:36 Last Admin: 09/24/19 19:52 Dose: 20 ml Documented by: Orphenadrine Citrate (Norflex) 60 mg IM ONETIME ONE Stop: 09/24/19 21:29 Last Admin: 09/24/19 21:44 Dose: 60 mg Documented by: - Exam Quality Assessment: No: Supplemental Oxygen General: Alert, Oriented Neck: Supple Lungs: Clear to Auscultation, Normal Respiratory Effort Cardiovascular: Regular Rate, Regular Rhythm GI/Abdominal Exam: Normal Bowel Sounds, Soft, Non-Tender Extremities: No Pedal Edema, Other (Left arm in a sling, right knee with minimal swelling) Skin: Warm, Other (Lower lip sutured) Sepsis Event Note - Evaluation Sepsis Screening Result: No Definite Risk - Focused Exam Vital Signs: Vital Signs Temp Pulse Resp BP Pulse Ox 09/25/19 07:43 98.5 F 74 20 138/84 97 Date Exam was Performed: 09/25/19 Time Exam was Performed: 11:37 - Problem List & Annotations (1) Effusion, right knee SNOMED Code(s): 103336310958425 Code(s): M25.461 - EFFUSION, RIGHT KNEE Status: Acute Current Visit: No (2) Fall from ladder SNOMED Code(s): 73258802 Code(s): W11.XXXA - FALL ON AND FROM LADDER, INITIAL ENCOUNTER Status: Acute Current Visit: No Qualifiers: Encounter type: initial encounter Qualified Code(s): W11.XXXA - Fall on and from ladder, initial encounter (3) Glenoid fracture of shoulder SNOMED Code(s): 00344583 Code(s): S42.143A - DISP FX OF GLENOID CAVITY OF SCAPULA, UNSP SHOULDER, INIT; S42.153A - DISP FX OF NECK OF SCAPULA, UNSP SHOULDER, INIT FOR CLOS FX Status: Acute Current Visit: No Qualifiers: Encounter type: initial encounter Fracture type: closed Laterality: left Qualified Code(s): S42.142A - Displaced fracture of glenoid cavity of scapula, left shoulder, initial encounter for closed fracture; S42.152A - Displaced fracture of neck of scapula, left shoulder, initial encounter for closed fracture (4) Laceration of lip SNOMED Code(s): 287758059 Code(s): S01.511A - LACERATION WITHOUT FOREIGN BODY OF LIP, INITIAL ENCOUNTER Status: Acute Current Visit: No Qualifiers: Encounter type: initial encounter Qualified Code(s): S01.511A - Laceration without foreign body of lip, initial encounter (5) Left wrist pain SNOMED Code(s): 67169968 Code(s): M25.532 - PAIN IN LEFT WRIST Status: Acute Current Visit: No - Problem List Review Problem List Initiated/Reviewed/Updated: Yes - My Orders Last 24 Hours: My Active Orders 09/24/19 22:50 Oxygen Therapy [RC] PRN Up With Assistance [RC] ASDIRECTED VTE/DVT Education [RC] PER UNIT ROUTINE Vital Signs [RC] 00,04,08,12,16,20 Acetaminophen [Tylenol] 650 mg PO Q4H PRN Acetaminophen/HYDROcodone [[place] 325-10 MG] 1 tab PO Q4H PRN Docusate Sodium [Colace] 100 mg PO BID PRN Morphine 1 mg IVPUSH Q2H PRN Ondansetron [Zofran ODT] 4 mg PO Q4H PRN Ondansetron [Zofran] 4 mg IVPUSH Q6H PRN Sodium Chloride 0.9% [Saline Flush] 10 ml FLUSH ASDIRECTED PRN Zolpidem [Ambien] 5 mg PO BEDTIME PRN Peripheral IV Insertion Adult [OM.PC] Routine Saline Lock Insert [OM.PC] Routine Resuscitation Status Routine 09/24/19 22:51 Sequential Compression Device [OM.PC] Per Unit Routine 09/24/19 22:52 Peripheral IV Care [RC] 09,21 09/24/19 23:00 Ibuprofen [Motrin] 400 mg PO TID Nicotine [Habitrol] 14 mg TRDERM DAILY 09/25/19 06:00 Heparin Sodium 5,000 units SUBCUT Q8HR 09/25/19 10:12 Ready for Discharge [RC] PER UNIT ROUTINE 09/25/19 11:25 BASIC METABOLIC PANEL,BMP [CHEM] Routine CBC WITH AUTO DIFF [HEME] Routine HEPATIC FUNCTION PANEL,HFP [CHEM] Routine 09/25/19 23:00 Remove Patch 1 ea TRDERM Q24H - Plan Plan:: 53-year-old gentleman with no chronic medical history. Taking no medications. Smoking 1.5 pack a day, drinking 5-7 beers a day The patient was working on the ladder about 10 feet high. He fell down. No apparent loss of consciousness. Did hit the face, shoulders, knee. Came to the emergency room He has been complaining of left shoulder, right knee pain. Laceration noted on the lower lip that was sutured in the ER. The patient had CT of the chest abdomen pelvis, x-ray of the left hand and right knee. Injury noted to the left glenoid bone with fracture. Pain medication was given in the emergency room that but the patient was in too much pain for discharge. Plan for admission for pain control. X-ray of the right knee, CT of the left shoulder, CT head, chest abdomen pelvis, x-ray of the left hand was reviewed. #1 Left thumb 2mm metallic body noted Left anterior and inferior glenoid fracture noted The patient's left shoulder injury was discussed between the emergency room provider and orthopedic surgery consumer studies professor in [place]. Plan for pain control Follow-up in the ortho clinic for further evaluation and treatment Will also need suture removal from the lower lip in 2 weeks #2. For pain control we'll use scheduled Motrin Use Tylenol for mild, hydrocodone for moderate, IV morphine for severe pain Use left upper extremity sling #3. Will use nicotine patch ordered a history of smoking, monitor for potential alcohol withdrawal check cbc, bmp #4. DVT prophylaxis with subcutaneous heparin
[2019-09-25 12:29] LABS: ANION GAP 15.7 mEq/L (7-13); CHLORIDE,CL 100 mmol/L (98-107); SODIUM,NA 137 mmol/L (136-145)
[2019-09-25] MEDS: Remove Patch (Nicotine) TRDERM SCH (22:20)
[2019-09-26] MEDS: Acetaminophen/HYDROcodone 325-10 MG Tab PO PRN (05:12)
[2019-09-26] MEDS: Heparin Sodium 5,000 Units/ML Vial SUBCUT SCH ×3 (05:16→22:16)
[2019-09-26] MEDS ORDERED: oxyCODONE 5 MG Tab PO PRN (08:54)
[2019-09-26] MEDS: Sodium Chloride 0.9% 10 ML Syringe FLUSH PRN ×3 (08:59→15:34)
[2019-09-26] MEDS: Morphine 2 MG/ML SYRINGE IVPUSH PRN ×6 (09:03→22:53)
[2019-09-26] MEDS: Ibuprofen 400 MG Tab PO SCH ×3 (09:06→20:43)
[2019-09-26] MEDS: Nicotine 14 MG/24 Hr Patch TRDERM SCH (09:08)
[2019-09-26] MEDS: traMADol 50 MG Tab PO PRN ×4 (10:02→22:10)
--- NOTE | 2019-09-26 11:02 | PCM.PN ---
- General Info Date of Service: 09/26/19 Admission Dx/Problem (Free Text): Admission Diagnosis/Problem Admission Diagnosis/Problem Fall from ladder Subjective Update: Continues to have moderate to severe pain in left shoulder Onset of pain is at the time of falling, oral hydrocodone is not relieving the pain Worse with movements, deep breaths, cough r. knee has mild to moderate pain much less than the left-sided chest and shoulder no bleeding from lip sutures - Review of Systems General: Denies: Fever Pulmonary: Reports: Pleuritic Chest Pain. Denies: Shortness of Breath Cardiovascular: Denies: Edema Gastrointestinal: Denies: Abdominal Pain Musculoskeletal: Reports: Other (Right knee pain, left shoulder pain) Neurological: Denies: Confusion - Patient Data Vitals - Most Recent: Last Vital Signs Temp 98.0 F 09/26/19 07:54 Pulse 69 09/26/19 07:54 Resp 20 09/26/19 07:54 BP 115/91 H 09/26/19 07:54 Pulse Ox 94 L 09/26/19 07:54 Weight - Most Recent: 236 lb 12.8 oz I&O - Last 24 Hours: Intake & Output 09/25/19 09/26/19 09/26/19 22:59 06:59 14:59 Intake Total 850 0 Balance 850 0 Lab Results Last 24 Hours: Laboratory Results - last 24 hr 09/25/19 09/25/19 Range/Units 11:58 11:58 WBC 13.2 H (5.0-10.0) 10^3/uL RBC 5.43 (4.6-6.2) 10^6/uL Hgb 17.1 (14.0-18.0) g/dL Hct 49.6 (40.0-54.0) % MCV 91.3 (80-100) fL MCH 31.5 (27.0-34.0) pg MCHC 34.5 (33.0-35.0) g/dL Plt Count 232 (150-450) 10^3/uL Neut % (Auto) 72.9 (42.2-75.2) % Lymph % (Auto) 13.2 L (20.5-50.1) % [place] % (Auto) 12.3 H (2-8) % Eos % (Auto) 1.4 (1.0-3.0) % Baso % (Auto) 0.2 (0.0-1.0) % Sodium 137 (136-145) mmol/L Potassium 3.7 (3.5-5.1) mmol/L Chloride 100 (98-107) mmol/L Carbon Dioxide 25 (21-32) mmol/L Anion Gap 15.7 H (7-13) mEq/L BUN 13 (7-18) mg/dL Creatinine 1.15 (0.70-1.30) mg/dL Est Cr Clr Drug Dosing 78.21 mL/min Estimated GFR (MDRD) > 60 Glucose 94 (74-99) mg/dL Calcium 8.5 (8.5-10.1) mg/dL Total Bilirubin 1.2 H (0.2-1.0) mg/dL Direct Bilirubin 0.2 (0.0-0.2) mg/dL Indirect Bilirubin 1.0 AST 32 (15-37) U/L ALT 34 (16-63) U/L Alkaline Phosphatase 90 (46-116) U/L Total Protein 7.5 (6.4-8.2) g/dL Albumin 3.9 (3.4-5.0) g/dL Globulin 3.6 Albumin/Globulin Ratio 1.1 Med Orders - Current: Current Medications Acetaminophen (Tylenol) 650 mg PO Q4H PRN PRN Reason: Pain (Mild 1-3)/fever Docusate Sodium (Colace) 100 mg PO BID PRN PRN Reason: Constipation Guaifenesin (Robitussin) 100 mg PO Q6H PRN PRN Reason: Cough Heparin Sodium (Porcine) (Heparin Sodium) 5,000 units SUBCUT Q8HR [facility] Last Admin: 09/26/19 05:16 Dose: Not Given Documented by: Ibuprofen (Motrin) 400 mg PO TID [facility] Last Admin: 09/26/19 09:06 Dose: 400 mg Documented by: Miscellaneous Information (Remove Patch) 1 ea TRDERM Q24H [facility] Last Admin: 09/25/19 22:20 Dose: Not Given Documented by: Morphine Sulfate (Morphine) 2 mg IVPUSH Q2H PRN PRN Reason: Pain (severe 7-10) Last Admin: 09/26/19 09:03 Dose: 2 mg Documented by: Nicotine (Habitrol) 14 mg TRDERM DAILY [facility] Last Admin: 09/26/19 09:08 Dose: 14 mg Documented by: Ondansetron HCl (Zofran Odt) 4 mg PO Q4H PRN PRN Reason: nausea, able to take PO Ondansetron HCl (Zofran) 4 mg IVPUSH Q6H PRN PRN Reason: Nausea/Vomiting Sodium Chloride (Saline Flush) 10 ml FLUSH ASDIRECTED PRN PRN Reason: Keep Vein Open Last Admin: 09/26/19 08:59 Dose: 10 ml Documented by: Tramadol HCl (Ultram) 50 mg PO Q4H PRN PRN Reason: Pain (moderate 4-6) Last Admin: 09/26/19 10:02 Dose: 50 mg Documented by: Zolpidem Tartrate (Ambien) 5 mg PO BEDTIME PRN PRN Reason: Sleep Last Admin: 09/24/19 23:12 Dose: 5 mg Documented by: Discontinued Medications Hydrocodone Bitart/Acetaminophen ([place] 325-10 Mg) 1 tab PO Q4H PRN PRN Reason: Pain (moderate 4-6) Last Admin: 09/26/19 05:12 Dose: 1 tab Documented by: Fentanyl (Sublimaze) 50 mcg IVPUSH ONETIME ONE Stop: 09/24/19 21:29 Last Admin: 09/24/19 21:42 Dose: 50 mcg Documented by: Iopamidol (Isovue-300 (61%)) 100 ml IVPUSH ONETIME ONE Stop: 09/24/19 18:03 Last Admin: 09/24/19 19:09 Dose: 100 ml Documented by: Lidocaine/Epinephrine (Xylocaine 1% With Epinephrine 1:100,000) 20 ml INJECT ONETIME ONE Stop: 09/24/19 19:36 Last Admin: 09/24/19 19:52 Dose: 20 ml Documented by: Morphine Sulfate (Morphine) 1 mg IVPUSH Q2H PRN PRN Reason: Pain (severe 7-10) Last Admin: 09/26/19 05:10 Dose: 1 mg Documented by: Orphenadrine Citrate (Norflex) 60 mg IM ONETIME ONE Stop: 09/24/19 21:29 Last Admin: 09/24/19 21:44 Dose: 60 mg Documented by: Oxycodone HCl (Oxycodone) 5 mg PO Q4H PRN PRN Reason: moderate pain - Exam General: Alert, Oriented Neck: Supple Lungs: Normal Respiratory Effort, Decreased Breath Sounds Cardiovascular: Regular Rate, Regular Rhythm GI/Abdominal Exam: Normal Bowel Sounds, Soft, Non-Tender Extremities: No Pedal Edema Wound/Incisions: Other (Lower lip incision without redness, without drainage) Sepsis Event Note - Evaluation Sepsis Screening Result: No Definite Risk - Focused Exam Vital Signs: Vital Signs Temp Pulse Resp BP Pulse Ox 09/26/19 07:54 98.0 F 69 20 115/91 H 94 L 09/26/19 04:00 97.8 F 71 20 116/71 95 Date Exam was Performed: 09/26/19 Time Exam was Performed: 10:58 - Problem List & Annotations (1) Effusion, right knee SNOMED Code(s): 063988578107561 Code(s): M25.461 - EFFUSION, RIGHT KNEE Status: Acute Current Visit: No (2) Fall from ladder SNOMED Code(s): 06728670 Code(s): W11.XXXA - FALL ON AND FROM LADDER, INITIAL ENCOUNTER Status: Acute Current Visit: No Qualifiers: Encounter type: initial encounter Qualified Code(s): W11.XXXA - Fall on and from ladder, initial encounter (3) Glenoid fracture of shoulder SNOMED Code(s): 52258686 Code(s): S42.143A - DISP FX OF GLENOID CAVITY OF SCAPULA, UNSP SHOULDER, INIT; S42.153A - DISP FX OF NECK OF SCAPULA, UNSP SHOULDER, INIT FOR CLOS FX Status: Acute Current Visit: No Qualifiers: Encounter type: initial encounter Fracture type: closed Laterality: left Qualified Code(s): S42.142A - Displaced fracture of glenoid cavity of scapula, left shoulder, initial encounter for closed fracture; S42.152A - Displaced fracture of neck of scapula, left shoulder, initial encounter for closed fracture (4) Laceration of lip SNOMED Code(s): 173270887 Code(s): S01.511A - LACERATION WITHOUT FOREIGN BODY OF LIP, INITIAL ENCOUNTER Status: Acute Current Visit: No Qualifiers: Encounter type: initial encounter Qualified Code(s): S01.511A - Laceration without foreign body of lip, initial encounter (5) Left wrist pain SNOMED Code(s): 73219102 Code(s): M25.532 - PAIN IN LEFT WRIST Status: Acute Current Visit: No - Problem List Review Problem List Initiated/Reviewed/Updated: Yes - My Orders Last 24 Hours: My Active Orders 09/25/19 11:40 OT Evaluation and Treatment [CONS] Routine PT Evaluation and Treatment [CONS] Routine 09/25/19 17:41 guaiFENesin [Robitussin] 100 mg PO Q6H PRN 09/25/19 23:00 Remove Patch 1 ea TRDERM Q24H 09/26/19 08:53 Morphine 2 mg IVPUSH Q2H PRN 09/26/19 08:54 Ribs 2V w Chest Lt [CR] Routine 09/26/19 09:04 traMADol [Ultram] 50 mg PO Q4H PRN - Plan Plan:: 53-year-old gentleman with no chronic medical history. Taking no medications. Smoking 1.5 pack a day, drinking 5-7 beers a day The patient was working on the ladder about 10 feet high. He fell down. No apparent loss of consciousness. Did hit the face, shoulders, knee. Came to the emergency room He has been complaining of left shoulder, right knee pain. Laceration noted on the lower lip that was sutured in the ER. The patient had CT of the chest abdomen pelvis, x-ray of the left hand and right knee. Injury noted to the left glenoid bone with fracture. Pain medication was given in the emergency room that but the patient was in too much pain for discharge. Plan for admission for pain control. X-ray of the right knee, CT of the left shoulder, CT head, chest abdomen pelvis, x-ray of the left hand was reviewed. #1 Left thumb 2mm metallic body noted Left anterior and inferior glenoid fracture noted The patient's left shoulder injury was discussed between the emergency room provider and orthopedic surgery pest controller in [place]. Pain control is not good Increase IV morphine dose, switch hydrocodone to ultram Add Lidoderm patch Obtain x-ray of the left rib cage to evaluate for fracture that was not seen on the initial CAT scan Follow-up in the ortho clinic for further evaluation and treatment Will also need suture removal from the lower lip in 2 weeks #2. For pain control we'll use scheduled Motrin Use Tylenol for mild, Ultram for moderate, IV morphine for severe pain Lidoderm patch Use left upper extremity sling #3. Will use nicotine patch ordered a history of smoking, monitor for potential alcohol withdrawal #4. DVT prophylaxis with subcutaneous heparin
--- NOTE | 2019-09-26 12:10 | CR ---
EXAMINATION: Ribs 2V w Chest Lt three-view SEX: Male AGE: 53 years CLINICAL HISTORY: 53-year-old male injured FALL (left chest pain). Comparison chest CT, 24 September 2019. "Infraglenoid fracture left scapula (old healed posterior right eighth rib fracture)". Interpretation: Abnormal. 1. Nondisplaced avulsion fracture infraglenoid portion, left scapula. No associated glenohumeral dislocation. 2. Acute nondisplaced fracture anterolateral left sixth (6) rib. 3. No sign of other left rib fracture, underlying lung contusion, atelectasis, dependent pleural effusion or pneumothorax on the left. 4. 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 5. Normal cardiac silhouette and mediastinal width. No signs of heart failure or lobar pneumonia. CONCLUSION: Acute nondisplaced anterolateral left sixth rib fracture. Ipsilateral fracture infraglenoid portion of the left scapula.
[2019-09-26] MEDS: Lidocaine 5% 700 MG Patch TOP SCH (14:15)
[2019-09-26] MEDS: guaiFENesin 100 MG/5 ML Soln 5 ML UD Cup PO PRN (20:56)
[2019-09-26] MEDS: Remove Patch (Nicotine) TRDERM SCH (22:17)
[2019-09-26] MEDS: oxyCODONE 5 MG Tab PO PRN (22:55)
[2019-09-27] MEDS: Heparin Sodium 5,000 Units/ML Vial SUBCUT SCH ×2 (05:03→14:21)
[2019-09-27] MEDS: guaiFENesin 100 MG/5 ML Soln 5 ML UD Cup PO PRN (07:57)
[2019-09-27] MEDS: oxyCODONE 5 MG Tab PO PRN (07:58)
[2019-09-27] MEDS: Ibuprofen 400 MG Tab PO SCH ×2 (09:09→13:28)
[2019-09-27] MEDS: Nicotine 14 MG/24 Hr Patch TRDERM SCH (09:10)
[2019-09-27] MEDS: Lidocaine 5% 700 MG Patch TOP SCH (09:13)
[2019-09-27] MEDS: Sodium Chloride 0.9% 10 ML Syringe FLUSH PRN (09:15)
--- NOTE | 2019-09-27 10:40 | PCM.DCSUM1 ---
Discharge Summary - Hospital Course Free Text/Narrative:: 53-year-old gentleman with no chronic medical history. Taking no medications. Smoking 1.5 pack a day, drinking 5-7 beers a day The patient was working on the ladder about 10 feet high. He fell down. No apparent loss of consciousness. Did hit the face, shoulders, knee. Came to the emergency room He has been complaining of left shoulder, right knee pain. Laceration noted on the lower lip that was sutured in the ER. The patient had CT of the chest abdomen pelvis, x-ray of the left hand and right knee. Injury noted to the left glenoid bone with fracture. Pain medication was given in the emergency room that but the patient was in too much pain for discharge. admission was for pain control. #1 Left thumb 2mm metallic body noted Left anterior and inferior glenoid fracture noted anterolateral left 6th rib fx The patient's left shoulder injury was discussed between the emergency room provider and orthopedic surgery fabrication mig welder in [place]. Plan for out pt follow up on Sunday with ortho surgery Hospital stay was prolonged for pain control and due to social situation Social work worked with patient to find resources for treatment, medications and living arrangements significant opioid need and tolerance noted - likely due to alcohol use no alcohol withdrawal symptoms Follow-up in the ortho clinic for further evaluation and treatment Will also need suture removal from the lower lip in 2 weeks pain control with lidoderm gel, heat/cold, motrin, tylenol and oxycodone for severe pain (Rx 10 mg pills #22 given) Use left upper extremity sling incentive spirometry follow up to establish PMD in the area for pain control, further eval and treat #3. use nicotine patch for smoking, Diagnosis: Stroke: No - Discharge Data Discharge Date: 09/27/19 Discharge Disposition: Home, Self-Care 01 Condition: Stable - Referral to Home Health Primary Care Physician: PCP None - Discharge Diagnosis/Problem(s) (1) Effusion, right knee SNOMED Code(s): 958814758208991 ICD Code: M25.461 - EFFUSION, RIGHT KNEE Status: Acute Current Visit: No (2) Fall from ladder SNOMED Code(s): 28069324 ICD Code: W11.XXXA - FALL ON AND FROM LADDER, INITIAL ENCOUNTER Status: Acute Current Visit: No Qualifiers: Encounter type: initial encounter Qualified Code(s): W11.XXXA - Fall on and from ladder, initial encounter (3) Glenoid fracture of shoulder SNOMED Code(s): 36928885 ICD Code: S42.143A - DISP FX OF GLENOID CAVITY OF SCAPULA, UNSP SHOULDER, INIT; S42.153A - DISP FX OF NECK OF SCAPULA, UNSP SHOULDER, INIT FOR CLOS FX Status: Acute Current Visit: No Qualifiers: Encounter type: initial encounter Fracture type: closed Laterality: left Qualified Code(s): S42.142A - Displaced fracture of glenoid cavity of scapula, left shoulder, initial encounter for closed fracture; S42.152A - Displaced fracture of neck of scapula, left shoulder, initial encounter for closed fracture (4) Laceration of lip SNOMED Code(s): 244337170 ICD Code: S01.511A - LACERATION WITHOUT FOREIGN BODY OF LIP, INITIAL ENCOUNTER Status: Acute Current Visit: No Qualifiers: Encounter type: initial encounter Qualified Code(s): S01.511A - Laceration without foreign body of lip, initial encounter (5) Left wrist pain SNOMED Code(s): 07448238 ICD Code: M25.532 - PAIN IN LEFT WRIST Status: Acute Current Visit: No (6) Rib fracture SNOMED Code(s): 06343451 ICD Code: S22.39XA - FRACTURE OF ONE RIB, UNSP SIDE, INIT FOR CLOS FX Status: Acute Current Visit: Yes - Patient Summary/Data Consults: Consultations 09/25/19 11:40 OT Evaluation and Treatment [CONS] Routine PT Evaluation and Treatment [CONS] Routine - Patient Instructions Diet: Heart Healthy Diet Activity: As Tolerated - Discharge Plan *PRESCRIPTION DRUG MONITORING PROGRAM REVIEWED*: Yes *COPY OF PRESCRIPTION DRUG MONITORING REPORT IN PATIENT SWEETIE: Yes Prescriptions/Med Rec: Lidocaine 4% [LMX 4] 1 gm TOP DAILY #1 tube Ibuprofen [Motrin] 600 mg PO Q6H PRN #30 tab PRN Reason: Pain oxyCODONE 10 mg PO Q4H PRN #22 tablet PRN Reason: Pain, severe Home Medications: Home Meds Acetaminophen [Tylenol] 650 mg PO Q4H PRN tablet 09/25/19 [Rx] Ibuprofen [Motrin] 600 mg PO Q6H PRN #30 tab 09/25/19 [Rx] Lidocaine 4% [LMX 4] 1 gm TOP DAILY #1 tube 09/27/19 [Rx] oxyCODONE 10 mg PO Q4H PRN #22 tablet 09/27/19 [Rx] Oxygen Therapy Mode: Room Air Patient Handouts: Shoulder Pain, Knee Effusion, [id number], Acetaminophen; Oxycodone capsules, Constipation, Adult, [id number], Sutured Wound Care, Sutures, [place], or Adhesive Wound Closure Referrals: PCP,None [Primary Care Provider] - (orthopedic surgery) - Discharge Summary/Plan Comment DC Time >30 min.: No - General Info Date of Service: 09/27/19 Functional Status: Reports: Pain Controlled (still significant pain with cough, movements - better with pain meds) - Review of Systems General: Denies: Fever Pulmonary: Denies: Shortness of Breath Cardiovascular: Reports: Chest Pain (pleuritic) Gastrointestinal: Denies: Abdominal Pain Neurological: Denies: Confusion - Patient Data Vitals - Most Recent: Last Vital Signs Temp 97.8 F 09/27/19 00:00 Pulse 70 09/27/19 00:00 Resp 18 09/27/19 00:00 BP 123/79 09/27/19 00:00 Pulse Ox 93 L 09/27/19 00:00 Weight - Most Recent: 236 lb 12.8 oz I&O - Last 24 hours: Intake & Output 09/26/19 09/27/19 09/27/19 22:59 06:59 14:59 Intake Total 1350 Balance 1350 Med Orders - Current: Current Medications Acetaminophen (Tylenol) 650 mg PO Q4H PRN PRN Reason: Pain (Mild 1-3)/fever Docusate Sodium (Colace) 100 mg PO BID PRN PRN Reason: Constipation Last Admin: 09/27/19 07:58 Dose: 100 mg Documented by: Guaifenesin (Robitussin) 100 mg PO Q6H PRN PRN Reason: Cough Last Admin: 09/27/19 07:57 Dose: 100 mg Documented by: Heparin Sodium (Porcine) (Heparin Sodium) 5,000 units SUBCUT Q8HR [facility] Last Admin: 09/27/19 05:03 Dose: Not Given Documented by: Ibuprofen (Motrin) 400 mg PO TID [facility] Last Admin: 09/27/19 09:09 Dose: 400 mg Documented by: Lidocaine (Lidoderm 5%) 700 mg TOP DAILY [facility] Last Admin: 09/27/19 09:13 Dose: 700 mg Documented by: Miscellaneous Information (Remove Patch) 1 ea TRDERM Q24H [facility] Last Admin: 09/26/19 22:17 Dose: Not Given Documented by: Miscellaneous Information (Remove Patch) 1 ea TRDERM BEDTIME [facility] Last Admin: 09/26/19 23:24 Dose: 1 ea Documented by: Morphine Sulfate (Morphine) 2 mg IVPUSH Q2H PRN PRN Reason: Pain (severe 7-10) Last Admin: 09/26/19 22:53 Dose: 2 mg Documented by: Nicotine (Habitrol) 14 mg TRDERM DAILY [facility] Last Admin: 09/27/19 09:10 Dose: 14 mg Documented by: Ondansetron HCl (Zofran Odt) 4 mg PO Q4H PRN PRN Reason: nausea, able to take PO Ondansetron HCl (Zofran) 4 mg IVPUSH Q6H PRN PRN Reason: Nausea/Vomiting Oxycodone HCl (Oxycodone) 10 mg PO Q4H PRN PRN Reason: Pain Last Admin: 09/27/19 07:58 Dose: 10 mg Documented by: Sodium Chloride (Saline Flush) 10 ml FLUSH ASDIRECTED PRN PRN Reason: Keep Vein Open Last Admin: 09/27/19 09:15 Dose: 10 ml Documented by: Zolpidem Tartrate (Ambien) 5 mg PO BEDTIME PRN PRN Reason: Sleep Last Admin: 09/24/19 23:12 Dose: 5 mg Documented by: Discontinued Medications Hydrocodone Bitart/Acetaminophen ([place] 325-10 Mg) 1 tab PO Q4H PRN PRN Reason: Pain (moderate 4-6) Last Admin: 09/26/19 05:12 Dose: 1 tab Documented by: Fentanyl (Sublimaze) 50 mcg IVPUSH ONETIME ONE Stop: 09/24/19 21:29 Last Admin: 09/24/19 21:42 Dose: 50 mcg Documented by: Iopamidol (Isovue-300 (61%)) 100 ml IVPUSH ONETIME ONE Stop: 09/24/19 18:03 Last Admin: 09/24/19 19:09 Dose: 100 ml Documented by: Lidocaine/Epinephrine (Xylocaine 1% With Epinephrine 1:100,000) 20 ml INJECT ONETIME ONE Stop: 09/24/19 19:36 Last Admin: 09/24/19 19:52 Dose: 20 ml Documented by: Morphine Sulfate (Morphine) 1 mg IVPUSH Q2H PRN PRN Reason: Pain (severe 7-10) Last Admin: 09/26/19 05:10 Dose: 1 mg Documented by: Orphenadrine Citrate (Norflex) 60 mg IM ONETIME ONE Stop: 09/24/19 21:29 Last Admin: 09/24/19 21:44 Dose: 60 mg Documented by: Oxycodone HCl (Oxycodone) 5 mg PO Q4H PRN PRN Reason: moderate pain Tramadol HCl (Ultram) 50 mg PO Q4H PRN PRN Reason: Pain (moderate 4-6) Last Admin: 09/26/19 22:10 Dose: 50 mg Documented by: - Exam Quality Assessment: Denies: Supplemental Oxygen General: Reports: Alert, Oriented HEENT: Reports: Other (lower lip suture) Neck: Reports: Supple Lungs: Reports: Rhonchi (left lower chest) Cardiovascular: Reports: Regular Rate, Regular Rhythm GI/Abdominal Exam: Normal Bowel Sounds, Soft, Non-Tender Extremities: No Pedal Edema, Other (r. knee swelling resolved, no redness) Skin: Reports: Warm, Dry Psy/Mental Status: Reports: Alert, Normal Affect, Normal Mood
[2019-09-27 15:02] VITALS: BP 143/75; PULSE 67
== END 2019-09-27 14:28 | disposition home or self-care (01) | DRG 563 ==
LOC: DL.ED 17:37 → DL.MS 22:03 → UNDOADMOB 22:14 → OBSVTOIN 09-26 13:09 → UNDODISIN 09-27 14:28
PROVIDERS: ADMIT Internal Medicine; ATTEND Internal Medicine
DX: S42.142A Displaced fracture of glenoid cavity of scapula, left shoulder, initial encounter for closed fracture (principal); S22.32XA Fracture of one rib, left side, initial encounter for closed fracture; F17.210 Nicotine dependence, cigarettes, uncomplicated; M25.461 Effusion, right knee; W11.XXXA Fall on and from ladder, initial encounter; S42.152A Displaced fracture of neck of scapula, left shoulder, initial encounter for closed fracture; S01.511A Laceration without foreign body of lip, initial encounter; M25.532 Pain in left wrist; Z79.899 Other long term (current) drug therapy; Z90.49 Acquired absence of other specified parts of digestive tract
CPT/HCPCS: 36415; 70450; 71101-LT; 71260; 72125; 73110-LT; 73200-LT; 73560-RT; 74177; 80048; 80076; 81003; 85025; 96372; 96374; 96375; 96376; 97162-GP; 97166-GO; 99218; 99225; 99232; 99238; 99284; 99285-25; A9270-GY; G0378; J1644; J2270; J2360; J3010; Q9967